=== PATIENT | male | born 1985 | race Caucasian/White ===

== ENCOUNTER 2025-04-06 11:09 | Emergency (ER) | payer OTHER, MEDICAID, SELFPAY ==
--- NOTE | ~2025-04-06 | XR_ITS ---
Clinical history:Postreduction EXAM: X-ray finger right fifth minimum 2 views TECHNIQUE:3 images of the right fifth digit were obtained Comparisons:04/06/2025 FINDINGS: Persistent dislocation of the PIP joint of the fifth digit. No obvious fracture identified. Soft tissue swelling about the right fifth digit. IMPRESSION: Persistent dislocation of the PIP joint of the right fifth digit. No obvious fracture identified. Soft tissue swelling about the right fifth digit. Reviewed, dictated and finalized at location A.
--- NOTE | ~2025-04-06 | XR_ITS ---
EXAMINATION: XR hand RT min 3V DATE: 04/06/2025 11:34 INDICATION: Blunt injury TECHNIQUE: 4 images of the right hand were obtained. COMPARISON: None. FINDINGS: Dislocation of the PIP joint of the fifth digit. Questionable volar plate fracture of the base of the middle phalanx of the fifth digit. Soft tissue swelling about the fifth digit. Bone mineralization is within normal limits. IMPRESSION: 1. Dislocation of the PIP joint of the fifth digit. 2. Questionable volar plate fracture of the base of the middle phalanx of the fifth digit. Dedicated imaging of the right fifth digit is recommended postreduction. Reviewed, dictated and finalized at location A. IMPRESSION: 1. Dislocation of the PIP joint of the fifth digit. 2. Questionable volar plate fracture of the base of the middle phalanx of the f ifth digit. Dedicated imaging of the right fifth digit is recommended postreduc tion.
--- NOTE | ~2025-04-06 | XR_ITS ---
Clinical history:Postreduction EXAM:X-ray finger fifth right minimum 2 views TECHNIQUE:3 images of the right fifth digit were obtained. Comparisons:04/06/2025 FINDINGS: Interval reduction of the previously dislocated right fifth PIP joint. No fracture identified. Soft tissue swelling about the right fifth digit. IMPRESSION: Interval reduction of the previously dislocated right fifth PIP joint. No fracture identified. Reviewed, dictated and finalized at location A.
[2025-04-06 11:14] VITALS: BP 138/88; PULSE 77; RESP 16; TEMP 36.7; O2SAT 100
--- OUTSIDE RECORDS SUMMARY | 2025-04-06 11:54 | XMS_ITS | Patient Health Record ---
Author Organization [facility] Address [address] [place] [address] Care Team Providers Care Machinery Rigger Name Role Phone [place] Primary Care Provider [phone] Allergies No Known Allergies Reason For Referral No Information Medications Medication SIG (Take, Route, Frequency, Duration) Notes Start Date End Date Status buPROPion HCl ER (SR) 100 MG 1 tablet in the morning Orally Once a day; Duration: 14 day(s) 07/02/2022 Active buPROPion HCl ER (SR) 100 MG 1 tablet in the morning Orally twice a day; Duration: 30 days 07/02/2022 Active Social History Tobacco Use: Social History Observation Description Date Details (start date - stop date) Never Smoker NA - NA Sex Assigned At : Social History Observation Description Sex Assigned At Male Dont use, Tobacco Use/Smoking Question Answer Notes Are you a nonsmoker Alcohol Screen (Audit-C) Question Answer Notes Did you have a drink containing alcohol in the p ast year? Yes Problems Problem Type SNOMED Code ICD Code Onset Dates Problem Status W/U Status Risk Notes Problem Back pain (405551137) Back pain (M54.9) Active confirmed Problem Obstructive sleep apnea syndrome (48351148) Sleep apnea in adult (G47.33) Active confirmed Problem Chronic fatigue syndrome (18464827) Chronic fatigue (R53.82) Active confirmed Problem Attention deficit hyperactivity disorder (852045811) Adult ADHD (F90.9) Active confirmed Problem History and physical examination, follow-up (715900949) Follow-up exam (Z09) Active confirmed Problem Obesity (827206979) Obesity, unspecified classification, unspecified obesity type, unspecified whether serious comorbidity present (E66.9) Active confirmed Problem Depressive disorder (disorder) (37619513) Depression, unspecified depression type (F32.A) Active confirmed Plan Of Treatment No Information Insurance Providers Payer Name Payer Address Payer Phone Subscriber Number Group Number Insured Name Patient Relationship to Insured Coverage Start Date Coverage End Date [employer] [address] [place] [phone] [id number] Raad Prado Self - patient is the insured 2 [employer] [address] [place] [phone] [id number] Raad Prado Self - patient is the insured 2 Medical (General) History Surgical History Surgery Date(Month/Year) Appendectomy 2019 Ear drum repair age 13 Hospitalization History Reason Date(Month/Year)
--- NOTE | 2025-04-06 12:18 | ED.UPPEXIN ---
HPI - Extremity Injury (Upper) General Chief Complaint: Extremity Injury, Upper Stated Complaint: right hand injury Time Seen by Provider: 04/06/25 11:23 Source: patient Mode of arrival: ambulatory Limitations: no limitations History of Present Illness HPI narrative: Patient is a 40-year-old male who presents the ED with report of right hand injury. Patient reports he was moving and lifting school desks and 1 of the desks fell. He attempted to catch it with his right hand and jammed his right 5th finger against the desk. Complains of pain to his right 5th digit. Deformity noted. Denies numbness. Denies any other injuries. Review of Systems Review of Systems: All systems reviewed & are unremarkable except as noted in HPI. All systems reviewed & are unremarkable except as noted in HPI and below Exam Narrative: GENERAL: Well appearing, well-nourished, non-toxic, in no acute distress. HEAD: Normocephalic, atraumatic. RESPIRATORY: Airway patent, respirations nonlabored. CARDIOVASCULAR: Regular rate and rhythm. Radial pulses strong and easily palpable. MUSCULOSKELETAL: Moves all extremities. Swelling and dislocation deformity to R 5th digit proximal finger. Focal tenderness. Sensation intact. Capillary refill intact. SKIN: Warm, dry, normal color. NEURO: A&O X3. Speech clear. No ataxic movements. PSYCHIATRIC: Appropriate mood and affect. Normal interaction. Course Vital Signs Vital signs: Vital Signs Temperature 98.0 F 04/06/25 11:14 Pulse Rate 77 04/06/25 11:14 Respiratory Rate 16 04/06/25 11:14 Blood Pressure 138/88 04/06/25 11:14 Pulse Oximetry 100 04/06/25 11:14 Oxygen Delivery Room Air 04/06/25 11:14 Temperature 98.0 F 04/06/25 11:14 Pulse Rate 77 04/06/25 11:14 Respiratory Rate 16 04/06/25 11:14 Blood Pressure 138/88 04/06/25 11:14 Pulse Oximetry 100 04/06/25 11:14 Oxygen Delivery Room Air 04/06/25 11:14 Procedures Nerve Block Nerve Block 1: Nerve block date: 04/06/25 Nerve block time: 12:38 Time out performed: Yes Local Anesthetic: lidocaine 1% Amount of anesthesia used (mL): 4 Side: right Nerve Blocks: digital (5th) Procedure Successful: Yes Patient Tolerated Procedure: well and no complications Complications: none MDM - Extremity Injury (Upper) MDM Narrative Medical decision making narrative: Patient presented to ED with injury to right 5th digit. X-ray of R hand showing PIP dislocation with possible avulsion fracture to middle phalanx. Digital nerve block was performed with adequate anesthesia. Reduction performed X2, confirmed by postreduction films. No fracture seen on postreduction films. Patient's fingers were jaida-taped, metal finger splint to use as needed. Will be referred to Hand surgery for further evaluation if needed. Given return precautions. Discharged in stable condition. Medical Records Attestation: I reviewed the patient's medical records. Imaging Data Attestation: I personally reviewed and interpreted this imaging study as follows: Radiologist's impression: ITS Impressions Hand X-Ray 04/06/25 11:37 IMPRESSION: 1. Dislocation of the PIP joint of the fifth digit. 2. Questionable volar plate fracture of the base of the middle phalanx of the fifth digit. Dedicated imaging of the right fifth digit is recommended postreduction. Finger X-Ray 04/06/25 13:18 IMPRESSION: Persistent dislocation of the PIP joint of the right fifth digit. No obvious fracture identified. Soft tissue swelling about the right fifth digit. Finger X-Ray 04/06/25 13:31 IMPRESSION: Interval reduction of the previously dislocated right fifth PIP joint. No fracture identified. Discharge Plan Discharge Clinical Impression: Dislocation of PIP joint of finger Patient Disposition: Home Condition: Stable Instructions: Antibiotic Form, Finger Dislocation (ED) Additional Instructions: Keep fingers jaida-taped together over the next several days. You may also wear metal finger splint as needed. Recommend Tylenol/ibuprofen as needed for pain. Recommend follow-up with hand surgery for further evaluation if needed. Call office to make appointment if needed. Return for new or worsening concerns. Patient Language: Bulgarian Follow-up/Referrals: Denisha Stinson MD [Physician, Plastic Surgery] Referral Note: PLASTIC/HAND SURGERY Osorio,Wilton Vyas DO [Primary Care Provider, Internal Medicine] Time of Disposition: 13:49
== END 2025-04-06 13:58 | disposition home or self-care (01) ==
PROVIDERS: Emergency Provider Physician Assistant; PCP Family Medicine
DX: S63.286A Dislocation of proximal interphalangeal joint of right little finger, initial encounter (principal); W20.8XXA Other cause of strike by thrown, projected or falling object, initial encounter
CPT/HCPCS: 26770; 73130; 73140; 99285; J2003

== ENCOUNTER 2025-08-01 09:15 | Emergency (ER) | payer OTHER, MEDICAID, SELFPAY ==
--- NOTE | ~2025-08-01 | XR_ITS ---
EXAMINATION: XR chest 2V, 08/01/2025 9:50 GASTROENTEROLOGY PHYSICIAN HISTORY: cp, DIZZY COMPARISON: No comparisons available. Technique: 2 views obtained. Findings: The lungs are clear, no effusion. No pneumothorax. Heart is normal size. Mediastinal and hilar contours are within normal limits. Bony thorax no acute abnormality. Impression: No acute cardiopulmonary abnormality. Reviewed, dictated and finalized at location P. ROENTEROLOGY PHYSICIAN Impression: No acute cardiopulmonary abnormality.
--- NOTE | 2025-08-01 09:17 | ECG_ITS ---
Test Date: 2025-08-01 09:23:46 Measurements Intervals [place] Rate: 81 P: 45 ND: 132 QRS: 0 QRSD: 98 T: 31 QT: 357 QTc: 416 Interpretive Statements SINUS RHYTHM INCOMPLETE RIGHT BUNDLE BRANCH BLOCK LOW QRS VOLTAGE IN PRECORDIAL LEADS PATTERN CONSISTENT WITH PULMONARY DISEASE BASELINE ARTIFACT- V1 BORDERLINE ECG No previous ECG available for comparison Electronically Signed On 08-01-2025 09:35:25 ASSISTANCE REPRESENTATIVE by Thai Corona D.O.
[2025-08-01 09:19] VITALS: BP 157/117; PULSE 89; RESP 18; TEMP 36.7; O2SAT 98
[2025-08-01 09:23] VITALS: PULSE 78; O2SAT 98
--- NOTE | 2025-08-01 09:29 | ED_ITS ---
HPI - SOB/Dyspnea General Chief Complaint: Shortness of Breath/Dyspnea Stated Complaint: sob Time Seen by Provider: 08/01/25 09:22 Source: patient Mode of arrival: ambulatory Limitations: no limitations History of Present Illness HPI Narrative: This is a 40-year-old male that presents to the emergency department for shortness of breath. Ongoing intermittently over the last 3 days. Does report he has had a cough the last several weeks. This had been largely resolving though. When he woke up this morning he was having burning chest pain which concerned him and prompted him to be seen. Denies fevers, lower extremity edema. Related Data Allergies Allergy/AdvReac Type Severity Reaction Status Date / Time No Known Allergies Allergy Verified 08/01/25 09:17 Review of Systems 2 Review of Systems: All systems reviewed & are unremarkable except as noted in HPI and below PMFSH Past Medical History Medical History (Updated 08/01/25 @ 13:03 by Saniya Huerta PA-C) No active medical problems Social History Social History (Updated 08/01/25 @ 09:40 by Saniya Huerta PA-C) Substance use: current Substance use type: marijuana Exam 2 Narrative: GENERAL: Well-appearing, well-nourished, and in no acute distress. HEAD: Normocephalic, atraumatic. EYES: EOMI. ENT: Nares clear, no rhinorrhea or epistaxis. Mucous membranes moist. Oropharynx without tonsillar hypertrophy exudate or other lesions. NECK: Supple. No adenopathy or masses. No JVD CHEST: Clear to auscultation. No respiratory distress. No wheezes rales or rhonchi HEART: Regular rate and rhythm. No murmur heard. Normal peripheral pulses. EXTREMITIES: Normal range of motion. No edema. SKIN: Warm, dry, no rash. NEURO: No focal deficits. Alert and oriented x3. PSYCH: Mildly anxious Course Vital Signs Vital signs: Vital Signs Temperature 98.1 F 08/01/25 09:19 Pulse Rate 89 08/01/25 09:19 Respiratory Rate 18 08/01/25 09:19 Blood Pressure 157/117 H 08/01/25 09:19 Pulse Oximetry 98 08/01/25 09:19 Oxygen Delivery Room Air 08/01/25 09:19 Temperature 98.1 F 08/01/25 09:19 Pulse Rate 65 08/01/25 12:47 Respiratory Rate 15 08/01/25 12:47 Blood Pressure 142/99 H 08/01/25 12:47 Pulse Oximetry 98 08/01/25 12:47 Oxygen Delivery Room Air 08/01/25 09:23 [facility] Narrative Medical decision making narrative: Patient presents to the ER for an episode of chest pain today. His vitals are stable. CBC and metabolic panel without concerning findings. D-dimer is not elevated. EKG without acute ST changes, baseline troponin are negative. Chest x-ray without acute cardiopulmonary abnormality. Heart score is 1. Patient is to follow-up with PCP for further evaluation Differential Diagnosis Differential Diagnosis: angina, PE, pneumonia, GERD, muscle strain, anxiety Lab Data [facility] Lab Attestation statement: I personally reviewed the patient's lab results. 08/01/25 09:42 08/01/25 09:42 Labs: Lab Results 08/01/25 08/01/25 08/01/25 Range/Units 09:42 09:42 12:28 WBC 6.0 (4.5-10.0) K/mm3 RBC 5.64 (4.6-6.20) M/mm3 Hgb 16.6 (14.0-18.0) g/dL Hct 48.9 (42.0-52.0) % MCV 86.7 (80-100) fl MCH 29.4 (26-34) pg MCHC 33.9 (32-36) g/dl RDW 13.2 (11.5-14.5) % Plt Count 278 (150-375) k/mm3 MPV 9.7 (7.4-10.4) fl Immature Gran % (Auto) 0.2 (0-0.5) % Neut % (Auto) 60.1 (45.5-73.1) % Lymph % (Auto) 28.4 (18.3-44.2) % Mckenzie % (Auto) 10.1 H (2.6-8.5) % Eos % (Auto) 0.5 (0-4.4) % Baso % (Auto) 0.7 (0.2-1.2) % Lymph # (Auto) 1.71 (0.9-3.2) K/mm3 Mckenzie # (Auto) 0.6 (0.1-0.6) K/mm3 Eos # (Auto) 0.0 (0-0.3) K/mm3 Baso # (Auto) 0.0 (0.0-0.1) K/mm3 Abs Immat Gran (auto) 0.01 (0.00-0.031) K/mm3 Absolute Neuts (auto) 3.6 (1.3-6.7) K/mm3 Absolute Nucleated RBC 0.000 (0.0-0.012) K/mm3 Nucleated RBC % 0.0 (0.0-0.2) % PT 13.4 (11.1-14.7) Seconds INR 1.0 APTT 26.9 (22.3-36.8) Seconds D-Dimer < 0.27 Cancelled (<0.48) ug/mL Sodium 138 (137-145) mmol/L Potassium 3.8 (3.4-5.0) mmol/L Chloride 109 H (98-107) mmol/L Carbon Dioxide 21 L (22-30) mmol/L Anion Gap 8 (4-12) mmol/L BUN 12 (9-20) mg/dL Creatinine 1.01 (0.7-1.3) mg/dL Estim Creat Clear Calc 112 ml/min Estimated GFR > 60 (59 - ) Glucose 93 (65-110) mg/dL Calcium 9.4 (8.4-10.2) mg/dL Total Bilirubin 1.3 (0.2-1.3) mg/dL AST 32 (17-59) U/L ALT 25 (6-50) U/L Alkaline Phosphatase 81 (38-126) U/L Troponin I < 0.012 < 0.012 (0.000-0.034) ng/mL Total Protein 8.3 H (6.3-8.2) g/dL Albumin 4.5 (3.5-5.1) g/dL Lipase 67 (23-300) U/L TSH (Reflex) 1.400 (0.465-4.68) uIU/mL Imaging Data Radiologist's impression: ITS Impressions Chest X-Ray 08/01/25 10:00 Impression: No acute cardiopulmonary abnormality. ECG Data EKG #1: ECG completion date: 08/01/25 normal rate, sinus rhythm, no ST changes and normal QT Critical Care Time Critical Care Time Critical Care Time: No Discharge Plan Discharge Clinical Impression: Chest pain Qualifiers: Chest pain type: unspecified Qualified Code(s): R07.9 - Chest pain, unspecified Patient Disposition: Home Condition: Stable Instructions: Chest Pain (ED) Additional Instructions: Return to the emergency department if you experience fever, chest pain, shortness of breath, or any other symptoms that are concerning to you. Follow up with primary care doctor Patient Language: Mohawk Follow-up/Referrals: Kaleb Nunez MD [Physician, Family Practice] UNKNOWN,DOCTOR [Non-Staff] Quality HEART score for chest pain patients History: slightly suspicious ECG: normal Age: < or = to 45 years Risk factors: 1 or 2 risk factors Troponin: < or = to 1x normal limit Heart score: 1
[2025-08-01 09:32] VITALS: BP 134/79; PULSE 79; RESP 17; O2SAT 97
[2025-08-01] MEDS: ASPIRIN 81 MG CHEWABLE TABLET 324 MG PO (09:40)
[2025-08-01] MEDS: ONDANSETRON INJ 4 MG/2 ML VIAL IV PUSH (09:40)
[2025-08-01] MEDS: FAMOTIDINE 20 MG/2 ML VIAL IV PUSH (09:43)
[2025-08-01 09:49] LABS: Hematocrit 48.9 % (42.0-52.0); Hemoglobin 16.6 g/dL (14.0-18.0); Immature Granulocyte Percent A 0.2 % (0-0.5); Lymphocytes Absolute Auto 1.71 K/mm3 (0.9-3.2); Mean Corpuscular HGB Conc 33.9 g/dl (32-36); Mean Corpuscular Hemoglobin 29.4 pg (26-34); Mean Corpuscular Volume 86.7 fl (80-100); Nucleated Red Blood Cells Absolute Auto 0.000 K/mm3 (0.0-0.012); Nucleated Red Blood Cells Perc 0.0 % (0.0-0.2); Platelet Count Result 278 k/mm3 (150-375); Red Blood Count 5.64 M/mm3 (4.6-6.20); White Blood Count 6.0 K/mm3 (4.5-10.0)
[2025-08-01 10:00] LABS: INR 1.0; Prothrombin Time 13.4 Seconds (11.1-14.7)
[2025-08-01 10:01] LABS: Partial Thromboplastin Time 26.9 Seconds (22.3-36.8)
[2025-08-01 10:06] LABS: Alanine Aminotransferase 25 U/L (6-50); Albumin Level 4.5 g/dL (3.5-5.1); Alkaline Phosphatase 81 U/L (38-126); Anion Gap 8 mmol/L (4-12); Aspartate Amino Transferase 32 U/L (17-59); Bilirubin,Total 1.3 mg/dL (0.2-1.3); Blood Urea Nitrogen 12 mg/dL (9-20); Calcium 9.4 mg/dL (8.4-10.2); Carbon Dioxide 21 mmol/L (22-30); Chloride 109 mmol/L (98-107); Estimated CRCL calculation 112 ml/min; Estimated Glomerular Filt Rate > 60; Glucose 93 mg/dL (65-110); Lipase 67 U/L (23-300); Potassium 3.8 mmol/L (3.4-5.0); Sodium 138 mmol/L (137-145); Total Protein 8.3 g/dL (6.3-8.2)
--- OUTSIDE RECORDS SUMMARY | 2025-08-01 10:13 | XMS_ITS | Patient Health Record ---
Author Organization [facility] Address [address] [place] [address] Phone [phone] Care Team Providers Care Shaper And Presser Name Role Phone Moises Belle BUTT Primary Care Provider [phone] Allergies No Known Allergies Reason For Referral No Information Medications Medication SIG (Take, Route, Frequency, Duration) Notes Start Date End Date Diagnosis (ICD Code) Status buPROPion HCl ER (SR) 100 MG Tablet Extended Release 12 Hour 1 tablet in the morning Orally Once a day; Duration: 14 day(s) 07/02/2022 Depression, unspecified depression type (ICD_10 - F32.A) Active buPROPion HCl ER (SR) 100 MG Tablet Extended Release 12 Hour 1 tablet in the morning Orally twice a day; Duration: 30 days 07/02/2022 Depression, unspecified depression type (ICD_10 - F32.A) Active Social History Tobacco Use: Social History Observation Description Date Details (start date - stop date) Never Smoker NA - NA Sex Observation Social History Observation Description Sex Observation Male Sexual Orientation Social History Observation Description Sexual Orientation Straight or heterose xual Gender Identity Social History Observation Description Gender Identity Male Social History Miscellaneous Social Info Question Answer Notes Method of learning: Preferred method of learning: Read ing Primary Social History Social Info Question Answer Notes Living Arrangement Living Arrangement: Independent Marija ing Is this a supportive environment? No Employment Status Employment Status: Unemployed Illicit Substance Usage Illicit Substance Usage: No Drugs/Alcohol: Social Info Question Answer Notes Alcohol Screen (Audit-C) Did you have a drink containing alcohol in the past year? Yes Drugs Have you used drugs other than those for medical reasons in the past 12 months? Yes Tobacco Use: Social Info Question Answer Notes Dont use, Tobacco Use/Smoking Are you a nonsmoker Additional Details Category Social Info Options Details Miscellaneous Domestic violence: No Problems Problem Type SNOMED Code ICD Code Dates Problem Status W/U Status Risk Notes Problem Back pain (262073425) Back pain (M54.9) Added On:2021 Active confirmed Problem Obstructive sleep apnea syndrome (93751074) Sleep apnea in adult (G47.33) Added On:2021 Active confirmed Problem Chronic fatigue syndrome (18738205) Chronic fatigue (R53.82) Added On:2021 Active confirmed Problem Attention deficit hyperactivity disorder (697765659) Adult ADHD (F90.9) Added On:2021 Active confirmed Problem History and physical examination, follow-up (620531328) Follow-up exam (Z09) Added On:2021 Active confirmed Problem Obesity (948753811) Obesity, unspecified classification, unspecified obesity type, unspecified whether serious comorbidity present (E66.9) Added On:2021 Active confirmed Problem Depressive disorder (disorder) (53453393) Depression, unspecified depression type (F32.A) Added On:2021 Active confirmed Plan Of Treatment No Information Insurance Providers Payer Name Payer Address Payer Phone Subscriber Number Group Number Insured Name Patient Relationship to Insured Coverage Start Date Coverage End Date [employer] [address] [place] [phone] [id number] Raad Prado Self - patient is the insured 2 [id number] [address] [place] [address] [id number] Raad Prado Self - patient is the insured 2 Medical (General) History Surgical History Surgery Date(Month/Year) Appendectomy 2020 Ear drum repair age 13 Hospitalization History Reason Date(Month/Year)
--- OUTSIDE RECORDS SUMMARY | 2025-08-01 10:13 | XMS_ITS | Clinical Summary ---
Author Organization [facility] Address [address] [place] [address] Care Team Providers Care Mimeograph Operator Name Role Phone Pcp, Robina Primary Care Provider [phone] Medications No known medications Social History Tobacco Use Types Packs/Day Years Used Date Smoking Tobacco: Never Assessed Sex and Gender Information Value Date Recorded Sex Assigned at Not on file Legal Sex Male 12:47 PM EST Gender Identity Not on file Sexual Orientation Not on file Plan of Treatment Not on file Medical Devices Not on file Care Teams Mimeograph Operator Relationship Specialty Start Date End Date PcpRobina PCP - General Family Medicine 08/28/21
[2025-08-01 10:14] LABS: Troponin I < 0.012 ng/mL (0.000-0.034)
[2025-08-01 10:46] LABS: Thyroid Stimulating Hormone Reflex 1.400 uIU/mL (0.465-4.68)
[2025-08-01 11:22] VITALS: BP 129/86; PULSE 67; RESP 19; O2SAT 98
--- OUTSIDE RECORDS SUMMARY | 2025-08-01 11:28 | XMS_ITS | Clinical Summary ---
Author Organization [facility] Address [address] [place] [address] Care Team Providers Care Sales Enablement Lead Name Role Phone Pcp, Robina Primary Care Provider [phone] Medications No known medications Social History Tobacco Use Types Packs/Day Years Used Date Smoking Tobacco: Never Assessed Sex and Gender Information Value Date Recorded Sex Assigned at Not on file Legal Sex Male 12:47 PM EST Gender Identity Not on file Sexual Orientation Not on file Plan of Treatment Not on file Medical Devices Not on file Care Teams Sales Enablement Lead Relationship Specialty Start Date End Date PcpRobina PCP - General Family Medicine 08/28/21
--- NOTE | 2025-08-01 11:56 | ECG_ITS ---
Test Date: 2025-08-01 12:02:11 Measurements Intervals [place] Rate: 63 P: 37 [place]: 168 QRS: 44 QRSD: 104 T: 31 QT: 382 QTc: 394 Interpretive Statements SINUS RHYTHM INCOMPLETE RIGHT BUNDLE BRANCH BLOCK DELAYED PRECORDIAL R/S TRANSITION LOW QRS VOLTAGE IN PRECORDIAL LEADS BORDERLINE ECG Compared to ECG 08/01/2025 09:23:46 NO SIGNIFICANT CHANGE Electronically Signed On 08-01-2025 12:15:44 SUPERVISOR SILVERING DEPARTMENT by Thai Corona D.O.
[2025-08-01 12:47] VITALS: BP 142/99; PULSE 65; RESP 15; O2SAT 98
[2025-08-01 13:01] LABS: Troponin I < 0.012 ng/mL (0.000-0.034)
[2025-08-01 13:14] VITALS: BP 151/84; PULSE 70; RESP 16; O2SAT 95
== END 2025-08-01 13:15 | disposition home or self-care (01) ==
PROVIDERS: Emergency Medicine; Emergency Provider Physician Assistant
DX: R07.9 Chest pain, unspecified (principal); I45.10 Unspecified right bundle-branch block; R94.31 Abnormal electrocardiogram [ECG] [EKG]
CPT/HCPCS: 36415; 71046; 80053; 83690; 84443; 84484; 85025; 85380; 85610; 85730; 93005; 96374; 96375; 99284; A9270; J2405